=== PATIENT | male | born 1975 | race Caucasian/White ===

== ENCOUNTER 2016-09-23 20:20 | Emergency (ER) | payer MEDICAID ==
[~2016-09-23] VITALS: Ht 180.3 cm; Wt 89.9 kg
[~2016-09-23 20:20] MED LIST: BACL20TA PO; CLON-365 PO; DIVA500T2 PO; KETO10TA PO; METO10TA82 PO; ONDA8TAB9 PO; PROM25SU34 RC; PROP10TA PO; SUMA5SPR IH
[2016-09-23] MEDS ORDERED: ONDANSETRON 2MG/ML, 2ML ONE (20:54)
[2016-09-23] MEDS ORDERED: FAMOTIDINE 20 MG/2 ML ONE (20:54)
[2016-09-23] MEDS ORDERED: SODIUM CHLORIDE 0.9% 1,000ML IVBOLUS ONE (21:00)
[2016-09-23] MEDS ORDERED: ONDANSETRON 2MG/ML, 2ML IVPush ONE (21:00)
[2016-09-23] MEDS ORDERED: FAMOTIDINE 20 MG/2 ML IVP ONE (21:00)
[2016-09-23 21:28] LABS: HEMOGLOBIN 16.1 g/dL (13.7-18.0)
[2016-09-23] MEDS ORDERED: GABA600T2 PO (21:28)
[2016-09-23 21:37] LABS: ASPARTATE AMINO TRANSFERASE 21 U/L (15-37); BLOOD UREA NITROGEN 12 mg/dL (7-18)
[2016-09-23] MEDS ORDERED: HYDROmorphone 1 MG/ML, 1ML IVPush PRN (22:00)
[2016-09-23] MEDS ORDERED: SODIUM CHLORIDE 0.9% 1,000ML IV ONE (22:00)
[2016-09-23] MEDS ORDERED: HYDROmorphone 1 MG/ML, 1ML ONE (22:23)
[2016-09-23 23:07] VITALS: BP 131/78
== END 2016-09-23 23:09 | disposition home or self-care (01) ==
LOC: ED 21:30
DX: R19.7 Diarrhea, unspecified (principal); R11.2 Nausea with vomiting, unspecified; E87.1 Hypo-osmolality and hyponatremia; Z88.8 Allergy status to other drugs, medicaments and biological substances
CPT/HCPCS: 36415; 74022; 80053; 81003; 83690; 85025; 96361; 96374; 96375; 99285; J1170; J2405; J7030; S0028

== ENCOUNTER 2016-10-09 13:24 | Emergency (ER) | payer MEDICAID ==
[~2016-10-09] VITALS: Ht 180.3 cm; Wt 89.5 kg
[~2016-10-09 13:24] MED LIST changes: +GABA600T2 PO
[2016-10-09] MEDS ORDERED: IBUPROFEN 200 MG TABLET ONE (14:19)
[2016-10-09] MEDS ORDERED: IBUPROFEN 200 MG TABLET PO ONE (14:30)
[2016-10-09] MEDS ORDERED: HYDROcodone/APAP 5/325 TABLET PO ONE (16:00)
[2016-10-09] MEDS ORDERED: HYDROcodone/APAP 5/325 TABLET ONE (16:06)
[2016-10-09] MEDS ORDERED: ONDANSETRON ODT 4 MG ONE (16:41)
[2016-10-09 17:00] VITALS: BP 118/87
[2016-10-09] MEDS ORDERED: ONDANSETRON ODT 4 MG PO ONE (17:00)
== END 2016-10-09 17:02 | disposition home or self-care (01) ==
LOC: ED 15:02
DX: S62.603A Fracture of unspecified phalanx of left middle finger, initial encounter for closed fracture (principal); R51 Headache; G89.29 Other chronic pain; Y04.0XXA Assault by unarmed brawl or fight, initial encounter; Y93.89 Activity, other specified; Y92.89 Other specified places as the place of occurrence of the external cause; Y99.8 Other external cause status; Z88.6 Allergy status to analgesic agent
CPT/HCPCS: 29130; 71101; 73130; 93005; 99284; Q0162

== ENCOUNTER 2016-10-11 14:32 | Emergency (ER) | payer MEDICAID ==
[~2016-10-11] VITALS: Ht 180.3 cm; Wt 88.5 kg
[2016-10-11 14:50] VITALS: BP 140/91
[2016-10-11] MEDS ORDERED: HYDROcodone/APAP 5/325 TABLET ONE (16:00)
[2016-10-11] MEDS ORDERED: HYDROcodone/APAP 5/325 TABLET PO ONE (16:00)
== END 2016-10-11 16:46 | disposition home or self-care (01) ==
LOC: ED 15:44
DX: S20.212A Contusion of left front wall of thorax, initial encounter (principal); G43.909 Migraine, unspecified, not intractable, without status migrainosus; Y04.0XXA Assault by unarmed brawl or fight, initial encounter; Y93.89 Activity, other specified; Y99.8 Other external cause status; Y92.89 Other specified places as the place of occurrence of the external cause
CPT/HCPCS: 99284

== ENCOUNTER 2017-06-28 20:27 | Emergency (ER) | payer MEDICAID ==
[~2017-06-28] VITALS: Ht 180.3 cm; Wt 89.6 kg
[2017-06-28] MEDS ORDERED: SODIUM CHLORIDE 0.9% 1,000ML IVBOLUS ONE (21:00)
[2017-06-28] MEDS ORDERED: SODIUM CHLORIDE FLUSH 10ML SYR IVF ONE (21:00)
[2017-06-28 21:12] LABS: CULTURE INDICATED? NO; MICROSCOPIC NOT IND
[2017-06-28 21:30] LABS: BASOPHILS # (AUTO) 0.01 x10^3/uL (0-0.1); BASOPHILS % (AUTO) 0 % (0-1); EOSINOPHILS # (AUTO) 0.11 x10^3/uL (0-0.4); EOSINOPHILS % (AUTO) 1 % (1-7); LYMPHOCYTES # (AUTO) 0.67 x10^3/uL (1-3.4); LYMPHOCYTES % (AUTO) 8 % (22-44); MD NO; MEAN CORPUSCULAR HEMOGLOBIN 29.7 pg (27.5-34.5); MEAN CORPUSCULAR HGB CONC 33.9 g/dL (33.2-36.2); MEAN CORPUSCULAR VOLUME 87.4 fL (81-97); MONOCYTES # (AUTO) 0.41 x10^3/uL (0.2-0.8); MONOCYTES % (AUTO) 5 % (2-9); NEUTROPHILS # (AUTO) 7.33 x10^3/uL (1.8-6.8); NEUTROPHILS % (AUTO) 86 % (42-75); PLATELET COUNT 188 x10^3/uL (130-400); RED BLOOD COUNT 5.38 x10^6/uL (4.38-5.82); RED CELL DISTRIBUTION WIDTH 13.5 % (9.4-14.8)
[2017-06-28 21:38] LABS: ALANINE AMINOTRANSFERASE 41 U/L (12-78); ALBUMIN 3.7 g/dL (3.4-5.0); ANION GAP 14 mmol/L (5-15); CALCIUM 8.3 mg/dL (8.5-10.1); CHLORIDE 99 mmol/L (98-107)
[2017-06-28 21:41] LABS: ALKALINE PHOSPHATASE 126 U/L (45-117); BILIRUBIN,TOTAL 0.4 mg/dL (0.2-1.0); TOTAL PROTEIN 7.3 g/dL (6.4-8.2)
[2017-06-28] MEDS ORDERED: PROMETHAZINE 25 MG/ML, 1ML IM ONE (22:00)
[2017-06-28] MEDS ORDERED: FAMOTIDINE 20 MG/2 ML IVPush ONE (22:00)
[2017-06-28] MEDS ORDERED: KETOROLAC 30 MG/1 ML IVPush ONE (22:00)
[2017-06-28] MEDS ORDERED: PANTOPRAZOLE 40 MG IV ONE (22:08)
[2017-06-28] MEDS ORDERED: PROMETHAZINE 25 MG/ML, 1ML ONE (22:08)
[2017-06-28] MEDS ORDERED: KETOROLAC 30 MG/1 ML ONE (22:09)
[2017-06-28] MEDS ORDERED: FAMOTIDINE 20 MG/2 ML ONE (22:09)
[2017-06-28] MEDS ORDERED: PANTOPRAZOLE 40 MG IV IVPush ONE (22:30)
[2017-06-28 23:46] VITALS: BP 115/77
== END 2017-06-28 23:49 | disposition home or self-care (01) ==
LOC: ED 22:43
DX: E86.0 Dehydration (principal); R10.13 Epigastric pain; Z76.0 Encounter for issue of repeat prescription; G43.909 Migraine, unspecified, not intractable, without status migrainosus; Z72.0 Tobacco use
CPT/HCPCS: 36415; 80053; 80307; 81003; 83690; 83735; 85025; 93005; 96361; 96372; 96374; 96375; 99285; C9113; J1885; J2550; J7030; S0028

== ENCOUNTER 2017-11-05 23:27 | Emergency (ER) | payer MEDICAID ==
[~2017-11-05] VITALS: Ht 180.3 cm; Wt 87.0 kg
[2017-11-06] MEDS ORDERED: DIPH,PERTUSS(ACELL),TET VAC/PF 0.5 ML IM-VACC ONE ×2 (00:22→00:30)
[2017-11-06] MEDS ORDERED: LIDOCAINE-MPF 1%, 5ML ONE (00:23)
[2017-11-06] MEDS ORDERED: LIDOCAINE 2%, 20ML SQ ONE (00:30)
[2017-11-06] MEDS ORDERED: BACITRACIN ZINC OINT 500U/GM, 0.9 GM ONE ×2 (01:17→01:29)
[2017-11-06 01:47] VITALS: BP 125/82
== END 2017-11-06 01:50 | disposition home or self-care (01) ==
LOC: ED 23:59
DX: S61.011A Laceration without foreign body of right thumb without damage to nail, initial encounter (principal); G43.909 Migraine, unspecified, not intractable, without status migrainosus; Z72.0 Tobacco use; W26.8XXA Contact with other sharp object(s), not elsewhere classified, initial encounter; Y93.89 Activity, other specified; Y92.89 Other specified places as the place of occurrence of the external cause; Y99.8 Other external cause status
CPT/HCPCS: 12041; 90715; 96372; 99284

== ENCOUNTER 2018-05-18 13:18 | Emergency (ER) | payer MEDICAID ==
[~2018-05-18] VITALS: Ht 177.8 cm; Wt 87.9 kg
[~2018-05-18 13:18] MED LIST changes: -CLON-365 PO; +CLON1TAB11 PO
[2018-05-18 13:29] VITALS: BP 116/81
== END 2018-05-18 14:14 | disposition home or self-care (01) ==
LOC: ED 14:05
DX: K12.0 Recurrent oral aphthae (principal); G44.219 Episodic tension-type headache, not intractable; Z76.0 Encounter for issue of repeat prescription
CPT/HCPCS: 99283

== ENCOUNTER 2018-06-01 12:59 | Emergency (ER) | payer MEDICAID ==
[~2018-06-01] VITALS: Ht 180.3 cm; Wt 86.5 kg
[~2018-06-01 12:59] MED LIST changes: -PROP10TA PO; +PROP10TA16 PO
[2018-06-01 13:26] VITALS: BP 129/86
--- NOTE | 2018-06-01 14:13 | NUR ---
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
[2018-06-01] MEDS ORDERED: LORazepam 1MG TABLET ONE (14:43)
[2018-06-01] MEDS ORDERED: LORazepam 1MG TABLET PO ONE (15:00)
== END 2018-06-01 15:54 | disposition home or self-care (01) ==
LOC: ED 13:25
DX: G47.00 Insomnia, unspecified (principal)
CPT/HCPCS: 99283

== ENCOUNTER 2018-06-07 07:27 | Emergency (ER) | payer MEDICAID ==
[~2018-06-07] VITALS: Ht 180.3 cm; Wt 84.2 kg
[~2018-06-07 07:27] MED LIST changes: -GABA600T2 PO; +GABA600T7 PO
[2018-06-07 07:31] VITALS: BP 129/89
[2018-06-07] MEDS ORDERED: LORazepam 1MG TABLET PO ONE (08:00)
[2018-06-07 08:15] LABS: BASOPHILS # (AUTO) 0.02 x10^3/uL (0-0.1); BASOPHILS % (AUTO) 0 % (0-1); EOSINOPHILS # (AUTO) 0.06 x10^3/uL (0-0.4); EOSINOPHILS % (AUTO) 1 % (1-7); LYMPHOCYTES # (AUTO) 1.75 x10^3/uL (1-3.4); LYMPHOCYTES % (AUTO) 22 % (22-44); MD NO; MEAN CORPUSCULAR HEMOGLOBIN 31.1 pg (27.5-34.5); MEAN CORPUSCULAR HGB CONC 33.6 g/dL (33.2-36.2); MEAN CORPUSCULAR VOLUME 92.5 fL (81-97); MEAN PLATELET VOLUME 8.4 fL (7.4-10.4); MONOCYTES # (AUTO) 0.64 x10^3/uL (0.2-0.8); MONOCYTES % (AUTO) 8 % (2-9); NEUTROPHILS # (AUTO) 5.58 x10^3/uL (1.8-6.8); NEUTROPHILS % (AUTO) 69 % (42-75); PLATELET COUNT 361 x10^3/uL (130-400); RED BLOOD COUNT 5.14 x10^6/uL (4.38-5.82); RED CELL DISTRIBUTION WIDTH 13.1 % (9.4-14.8)
[2018-06-07 08:27] LABS: ALANINE AMINOTRANSFERASE 42 U/L (12-78); ANION GAP 5 mmol/L (5-15); CALCIUM 8.8 mg/dL (8.5-10.1); CHLORIDE 106 mmol/L (98-107); CREATININE 1.17 mg/dL (0.7-1.3)
[2018-06-07 08:29] LABS: ALKALINE PHOSPHATASE 106 U/L (45-117); BILIRUBIN,TOTAL 0.5 mg/dL (0.2-1.0); TOTAL PROTEIN 7.6 g/dL (6.4-8.2)
[2018-06-07 08:34] LABS: ACETAMINOPHEN < 2 mcg/mL (10-30); SALICYLATE LEVEL < 1.7 mg/dL (2.8-20.0)
--- NOTE | 2018-06-07 09:00 | NUR ---
Pt walked out to nurses' station several times stating that he wanted to leave. Appears anxious & is speaking loudly but is redirectable back to his room. Denies SI/HI, denies auditory or visual hallucinations. States he wants a copy of his labs & will f/u with his own psychiatrist at [facility] after Xmas. Provider Richard informed that pt wants to leave AMA & counseled by provider about risks prior to leaving.
== END 2018-06-07 09:04 | disposition left against medical advice (07) ==
LOC: ED 08:31
DX: F31.9 Bipolar disorder, unspecified (principal)
CPT/HCPCS: 36415; 80053; 80307; 80329; 85025; 93005; 99284; G0480

== ENCOUNTER 2018-11-18 13:33 | Emergency (ER) | payer MEDICAID ==
--- NOTE | 2018-11-18 14:03 | NUR ---
NO ANSWER IN LOBBY AT THIS TIME.
--- NOTE | 2018-11-18 14:09 | NUR ---
NO ANSWER IN LOBBY AT [id number]
--- NOTE | 2018-11-18 14:19 | NUR ---
NO ANSWER IN LOBBY AT THIS TIME.
== END 2018-11-18 14:20 | disposition left against medical advice (07) ==
LOC: ED 14:14
DX: K13.79 Other lesions of oral mucosa (principal); Z53.21 Procedure and treatment not carried out due to patient leaving prior to being seen by health care provider

== ENCOUNTER 2018-11-24 23:25 | Emergency (ER) | payer MEDICAID ==
[~2018-11-24] VITALS: Ht 180.3 cm; Wt 88.0 kg
[2018-11-24 23:28] VITALS: BP 147/94
[2018-11-24] MEDS ORDERED: HALOPERIDOL 5 MG/ML ONE (23:39)
[2018-11-25] MEDS ORDERED: HALOPERIDOL 5 MG/ML IM ONE
== END 2018-11-25 00:19 | disposition home or self-care (01) ==
LOC: ED 23:56
DX: F51.02 Adjustment insomnia (principal); G47.9 Sleep disorder, unspecified; F31.12 Bipolar disorder, current episode manic without psychotic features, moderate; G43.909 Migraine, unspecified, not intractable, without status migrainosus
CPT/HCPCS: 96372; 99283; J1630

== ENCOUNTER 2018-12-07 22:09 | Emergency (ER) | payer MEDICAID ==
[~2018-12-07] VITALS: Ht 180.3 cm; Wt 86.5 kg
[2018-12-07 22:12] VITALS: BP 130/80
--- NOTE | 2018-12-07 23:05 | NUR ---
not in lobby
--- NOTE | 2018-12-07 23:35 | NUR ---
NOT IN LOBBY OR BATHROOM
== END 2018-12-07 23:37 | disposition left against medical advice (07) ==
LOC: ED 23:30
DX: Z72.820 Sleep deprivation (principal); Z53.21 Procedure and treatment not carried out due to patient leaving prior to being seen by health care provider

== ENCOUNTER 2020-11-09 14:31 | Emergency (ER) | payer MEDICAID ==
[~2020-11-09] VITALS: Ht 180.3 cm; Wt 99.2 kg
[2020-11-09] MEDS ORDERED: IBUPROFEN 600 MG TABLET ONE (16:09)
[2020-11-09] MEDS ORDERED: HALOPERIDOL 5 MG/ML ONE (16:09)
[2020-11-09] MEDS ORDERED: HALO5TAB5 PO (16:21)
[2020-11-09] MEDS ORDERED: DIVA500T4 PO (16:23)
[2020-11-09] MEDS ORDERED: HALOPERIDOL 5 MG/ML IM ONE (16:30)
[2020-11-09] MEDS ORDERED: IBUPROFEN 600 MG TABLET PO ONE (17:00)
[2020-11-09 17:03] VITALS: BP 117/54
== END 2020-11-09 17:05 | disposition home or self-care (01) ==
LOC: ED 16:08
DX: F31.81 Bipolar II disorder (principal); F17.210 Nicotine dependence, cigarettes, uncomplicated; G43.909 Migraine, unspecified, not intractable, without status migrainosus
CPT/HCPCS: 36415; 80164; 96372; 99284; 99406; J1630; 99283